=== PATIENT | female | born 1985 | race Caucasian/White ===

== ENCOUNTER → 2021-07-05 | Outpatient (REF) | LOC: M LAB 11:07 | PROVIDERS: ATTEND Nurse Practitioner Adult Health | DX: Z00.00 Encounter for general adult medical examination without abnormal findings (principal) ==

== ENCOUNTER 2022-01-29 12:18 | Emergency (ER) | payer SELFPAY ==
[~2022-01-29] VITALS: Ht 177.8 cm; Wt 91.3 kg
[2022-01-29] MEDS ORDERED: CITA40TA7 PO (12:48)
[2022-01-29 14:58] VITALS: BP 135/90
== END 2022-01-29 15:01 | disposition home or self-care (01) ==
LOC: M ED 12:18
DX: S93.402A Sprain of unspecified ligament of left ankle, initial encounter (principal); Y99.0 Civilian activity done for income or pay

== ENCOUNTER 2022-11-04 21:07 | Emergency (ER) | payer BC, OTHER ==
[~2022-11-04] VITALS: Ht 165.1 cm; Wt 85.0 kg
[~2022-11-04 21:07] MED LIST: CITA40TA7 PO
[2022-11-04] MEDS ORDERED: QUET1TAB17 PO (23:22)
[2022-11-04] MEDS ORDERED: YASM3TAB2 PO (23:22)
[2022-11-04] MEDS ORDERED: HOME MED LIST COMPLETE! XX SCH (23:25)
[2022-11-05] MEDS ORDERED: QUEtiapine FUMARATE 25 MG TAB PO PRN (08:30)
[2022-11-05 13:49] VITALS: BP 132/84; TEMP 98.1; O2SAT 97
[2022-11-05] MEDS ORDERED: CitaloPRAM (CeleXA) 20 MG TAB PO SCH (21:00)
[2022-11-05] MEDS ORDERED: QUEtiapine FUMARATE 25 MG TAB PO SCH (21:00)
== END 2022-11-05 13:51 | disposition home or self-care (01) ==
LOC: M ED 21:07
DX: F32.A Depression, unspecified (principal); F60.3 Borderline personality disorder; F41.9 Anxiety disorder, unspecified; Z79.3 Long term (current) use of hormonal contraceptives; Z79.899 Other long term (current) drug therapy

== ENCOUNTER → 2023-08-26 | Outpatient (REF) ==
[~2023-08-26] MED LIST changes: +QUET1TAB17 PO; +YASM3TAB2 PO
[2023-08-26 12:41] LABS: RSV AMPLIFICATION NEGATIVE (NEGATIVE)
== END ==
LOC: M EMP 11:16
PROVIDERS: ATTEND Family Medicine
DX: Z01.89 Encounter for other specified special examinations (principal)

== ENCOUNTER 2023-12-23 08:59 | Emergency (ER) | payer BC ==
[~2023-12-23] VITALS: Ht 177.8 cm; Wt 84.1 kg
[2023-12-23 10:27] LABS: BASO # 0.1 10^3/uL (0.0-0.2); EOS # 0.2 10^3/uL (0.0-0.5); EOS % 3.2 % (0.0-3.0); HEMATOCRIT 40.4 % (36.0-47.0); HEMOGLOBIN 13.1 g/dl (12.0-15.5); LYMPH # 1.5 10^3/uL (1.5-5.0); LYMPH % 21.7 % (24.0-44.0); MEAN CORPUSCULAR HEMOGLOBIN 30.5 pg (27.0-33.0); MEAN CORPUSCULAR HGB CONC 32.4 g/dl (32.0-36.5); MONO # 0.5 10^3/uL (0.0-0.8); MONO % 7.8 % (2.0-8.0); NEUTROPHILS # 4.5 10^3/uL (1.5-8.5); NEUTROPHILS % 65.9 % (36.0-66.0); PLATELET COUNT, AUTOMATED 304 10^3/uL (150-450); WHITE BLOOD COUNT 6.8 10^3/uL (4.0-10.0)
[2023-12-23 10:53] LABS: LIPASE 44 U/L (12-53)
[2023-12-23 10:54] LABS: AMYLASE 90 U/L (30-118)
[2023-12-23 10:55] LABS: ALBUMIN 3.2 G/DL (3.2-5.2); ALKALINE PHOSPHATASE 70 U/L (46-116); ALT/SGPT 15 U/L (7.0-40); AST/SGOT < 8 U/L (<34); BILIRUBIN,DIRECT < 0.1 MG/DL (<0.4); BILIRUBIN,TOTAL 0.2 MG/DL (0.3-1.2); BLOOD UREA NITROGEN 15 MG/DL (9-23); CALCIUM LEVEL 9.2 MG/DL (8.5-10.1); CARBON DIOXIDE LEVEL 28 MMOL/L (20-31); CHLORIDE LEVEL 108 MMOL/L (98-107); CREATININE FOR GFR 1.01 MG/DL (0.55-1.30); GLOMERULAR FILTRATION RATE > 60.0 (>58); GLUCOSE, FASTING 84 MG/DL (60-100); POTASSIUM SERUM 4.5 MMOL/L (3.5-5.1); SODIUM LEVEL 139 MMOL/L (136-145); TOTAL PROTEIN 6.5 G/DL (5.7-8.2)
[2023-12-23] MEDS: NS 1,000 ML IV ONE (10:56)
[2023-12-23 13:22] VITALS: BP 135/75; TEMP 98.1; O2SAT 100
== END 2023-12-23 13:23 | disposition home or self-care (01) ==
LOC: EDBD 08:59 → M ED 08:59
DX: R55 Syncope and collapse (principal); F32.A Depression, unspecified; Z79.899 Other long term (current) drug therapy

== ENCOUNTER 2024-05-14 06:55 | Emergency (ER) | payer BC ==
[~2024-05-14] VITALS: Ht 177.8 cm; Wt 88.5 kg
[2024-05-14] MEDS ORDERED: BUSP5TA (07:07)
[2024-05-14] MEDS ORDERED: VITA1CAP25 (07:07)
[2024-05-14 09:52] VITALS: BP 134/82; TEMP 98.4; O2SAT 98
== END 2024-05-14 09:53 | disposition home or self-care (01) ==
LOC: M ED 06:55
DX: M79.604 Pain in right leg (principal); M25.571 Pain in right ankle and joints of right foot; Z79.899 Other long term (current) drug therapy

== ENCOUNTER 2024-05-24 09:04 | Emergency (ER) | payer BC ==
[~2024-05-24] VITALS: Ht 177.8 cm; Wt 87.9 kg
[~2024-05-24 09:04] MED LIST changes: +BUSP5TA; +VITA1CAP25
[2024-05-24 09:06] VITALS: BP 128/85; TEMP 98.9; O2SAT 97
== END 2024-05-24 10:31 | disposition left against medical advice (07) ==
LOC: M ED 09:04
DX: Z53.21 Procedure and treatment not carried out due to patient leaving prior to being seen by health care provider (principal)

== ENCOUNTER → 2024-12-14 | Outpatient (CLI) | payer BC | LOC: M SOG 08:09 | PROVIDERS: ATTEND Physician Assistant | DX: M25.572 Pain in left ankle and joints of left foot (principal) ==